=== PATIENT | female | born 1995 | race Caucasian/White ===

== ENCOUNTER 2016-06-29 20:18 | Inpatient (IN) | payer SELFPAY ==
[~2016-06-29] VITALS: Ht 162.6 cm; Wt 50.0 kg
[2016-06-29] MEDS ORDERED: SOD BICARB 8.4% VIAL 50 ML ONE (21:03)
[2016-06-29] MEDS ORDERED: SODIUM CHLORIDE 0.9% 1,000 ML ONE (21:03)
[2016-06-30] MEDS ORDERED: NICOTINE 21 MG/24 HR TRANSDERM ONE (00:30)
[2016-06-30] MEDS ORDERED: MAG HYDROX 30 ML UDC PO PRN (00:50)
[2016-06-30] MEDS ORDERED: ALU/MAG/SIM 30 ML UDC PO PRN (00:50)
[2016-06-30] MEDS ORDERED: ACETAMINOPHEN 325 MG TAB PO PRN (00:50)
[2016-06-30] MEDS ORDERED: DIPHENHYDRAMINE 50 MG CAP PO PRN (00:50)
[2016-06-30] MEDS ORDERED: HALOPERIDOL 5 MG/ML VIAL IM PRN (00:50)
[2016-06-30] MEDS ORDERED: HALOPERIDOL 5 MG TAB PO PRN (00:50)
[2016-06-30] MEDS ORDERED: DIPHENHYDRAMINE 50 MG/ML VIAL IM PRN (00:50)
[2016-06-30] MEDS ORDERED: LORAZEPAM 2 MG TAB PO PRN (00:50)
[2016-06-30] MEDS ORDERED: TRAZODONE 50 MG TAB PO PRN (00:50)
[2016-06-30] MEDS ORDERED: LORAZEPAM 2 MG/ML VIAL IM PRN (00:50)
[2016-06-30 01:59] VITALS: Ht 162.6 cm; Wt 50.0 kg
[2016-06-30 03:00] VITALS: BP_SYST 126; RESP 20; TEMP 98
[2016-06-30] MEDS ORDERED: NICOTINE 21 MG/24 HR TRANSDERM SCH (09:00)
== END 2016-06-30 12:50 | disposition home or self-care (01) | DRG 881 ==
LOC: ENRESERVTM → ENRESERVDT → ER 20:18 → EMR 06-30 00:44 → PSY 06-30 01:35
PROVIDERS: ADMIT Psychiatry & Neurology Psychiatry; ATTEND Psychiatry & Neurology Psychiatry
CPT/HCPCS: 36415; 80053; 81003; 81025; 84439; 84443; 85025; 96361; 96374